=== PATIENT | male | born 1985 | race Two or more races ===

== ENCOUNTER 2018-03-08 23:51 | Emergency (ER) | payer OTHER ==
[~2018-03-08] VITALS: Ht 167.6 cm; Wt 78.9 kg
[2018-03-09] MEDS ORDERED: ZITHROMAX500 MG PO (05:18)
[2018-03-09] MEDS ORDERED: KETO10TA2 PO (05:18)
== END 2018-03-09 05:59 | disposition home or self-care (01) ==
LOC: ER 23:51
DX: H66.93 Otitis media, unspecified, bilateral (principal); R51 Headache